=== PATIENT | male | born 1990 | race Caucasian/White ===

== ENCOUNTER 2016-11-20 20:08 | Emergency (ER) | payer BC, MEDICAID ==
[2016-11-20 21:59] VITALS: BP 148/88
[2016-11-20] MEDS ORDERED: Ondansetron 4 MG/2 ML SDV IVPUSH ONE (22:17)
[2016-11-20] MEDS ORDERED: HYDROmorphone 1 MG/ML Syringe IVPUSH ONE (22:18)
[2016-11-20] MEDS ORDERED: Sodium Chloride 0.9% 1,000 ML IV SCH (22:30)
[2016-11-20] MEDS ORDERED: Sodium Chloride 0.9% 10 ML Syringe FLUSH PRN (22:34)
[2016-11-20] MEDS ORDERED: Iopamidol 612 MG/ML 150 ML Bottle IV SCH (22:45)
--- NOTE | 2016-11-21 00:13 | EDM.PDOC ---
ED HPI GI/ABDOMINAL - General Chief Complaint: Abdominal Pain Stated Complaint: ABD PAIN Time Seen by Provider: 11/20/16 22:15 Source: Reports: Patient History Limitations: Reports: No limitations - History of Present Illness INITIAL COMMENTS - FREE TEXT/NARRATIVE: History of present illness: [26 show male presenting with a somewhat bizarre history of having 2 or 3 times per week some abdominal pain with fevers he has not been seen before for this. He's not had any nausea vomiting constipation diarrhea dysuria with it this is the first time he is presenting to be evaluated for this problem. The pain migrates somewhat but tonight it seems to be localizing in the left lower quadrant. He otherwise feels fine. He's had no travel outside the [place]] Review of systems: As per history of present illness and below otherwise all systems reviewed and negative. Past medical history: As per history of present illness and as reviewed below otherwise noncontributory. Surgical history: As per history of present illness and as reviewed below otherwise noncontributory. Social history: No reported history of drug or alcohol abuse. Family history: As per history of present illness and as reviewed below otherwise noncontributory. Physical exam: HEENT: Atraumatic, normocephalic, pupils reactive, negative for conjunctival pallor or scleral icterus, mucous membranes moist, throat clear, neck supple, nontender, trachea midline. Lungs: Clear to auscultation, breath sounds equal bilaterally, chest nontender. Heart: S1S2, regular, negative for clicks, rubs, or JVD. Abdomen: Distended palpation of left lower quadrant but no definitive peritoneal signs are noted. Pelvis: Stable nontender. Genitourinary: Deferred. Rectal: Deferred. Extremities: Atraumatic, negative for cords or calf pain. Neurovascular unremarkable. Neuro: Awake, alert, oriented. Cranial nerves II through XII unremarkable. Cerebellum unremarkable. Motor and sensory unremarkable throughout. Exam nonfocal. Diagnostics: [CBC complete panel and UA were done as well as CRP abdominal pelvic CT was also undertaken and was normal.] Therapeutics: [He was given IV fluids and some IV Dilaudid for pain] Impression: [Nonspecific abdominal pain with fever] Plan: [Since this is been going on for one month now I am going to empirically treat with Cipro 500 mg twice a day for 7 days and see if that makes a difference. I am advising him to followup with a primary care doctor to continue to try to sort out this problem. He may end up having to see an infectious disease specialist if he continues to have this problem and no one can identify why this is happening.] Definitive disposition and diagnosis as appropriate pending reevaluation and review of above. - Related Data Allergies/ADRs: Allergies Allergy/AdvReac Type Severity Reaction Status Date / Time No Known Allergies Allergy Verified 11/20/16 21:59 Home Meds: Home Meds NK [No Known Home Meds] 06/25/14 [History] Past Medical History - Infectious Disease History Infectious Disease History: Reports: Chicken pox - Past Surgical History HEENT Surgical History: Reports: Oral surgery Social & Family History - Family History Family Medical History: Unobtainable - Tobacco Use Smoking Status *Q: Never Smoker Second Hand Smoke Exposure: Yes - Caffeine Use Caffeine Use: Reports: Soda - Alcohol Use Days Per Week of Alcohol Use: 2 Number of Drinks Per Day: 2 Total Drinks Per Week: 4 - Recreational Drug Use Recreational Drug Use: Yes ED ROS GENERAL - Review of Systems Review Of Systems: ROS reveals no pertinent complaints other than HPI. ED EXAM, GI/ABD - Physical Exam Exam: See Below Course - Vital Signs Last Recorded V/S: Last Vital Signs Temp 38.4 C H 11/20/16 21:56 Pulse 118 H 11/20/16 21:56 Resp 18 11/20/16 21:56 BP 148/88 H 11/20/16 21:56 Pulse Ox 100 11/20/16 21:56 - Orders/Labs/Meds Orders: Active Orders 24 hr Category Date Time Status Abdomen Pelvis w Cont [CT] Stat Exams 11/20/16 22:16 Taken Iopamidol [Isovue-300 (61%)] Med 11/20/16 22:45 Active 112 ml IV . DIRECTED Sodium Chloride 0.9% [Normal Saline] 1,000 ml Med 11/20/16 22:30 Active IV ASDIRECTED Sodium Chloride 0.9% [Normal Saline] 74 ml Med 11/20/16 22:45 Active IV ASDIRECTED Sodium Chloride 0.9% [Saline Flush] Med 11/20/16 22:34 Active 10 ml FLUSH ASDIRECTED PRN Medication Orders Sodium Chloride (Normal Saline) 1,000 mls @ 150 mls/hr IV ASDIRECTED NILES Last Admin: 11/20/16 22:36 Dose: 150 mls/hr Sodium Chloride (Normal Saline) 74 mls @ 3.4 mls/sec IV ASDIRECTED NILES Last Admin: 11/20/16 22:52 Dose: 3.4 mls/sec Iopamidol (Isovue-300 (61%)) 112 ml IV . DIRECTED NILES Last Admin: 11/20/16 22:52 Dose: 112 ml Sodium Chloride (Saline Flush) 10 ml FLUSH ASDIRECTED PRN PRN Reason: Keep Vein Open Last Admin: 11/20/16 22:52 Dose: 10 ml Labs: Laboratory Tests 11/20/16 11/20/16 11/20/16 Range/Units 22:16 22:16 22:16 WBC 9.3 (4.5-11.0) K/uL RBC 5.54 (4.30-5.90) M/uL Hgb 16.5 H (12.0-15.0) g/dL Hct 48.7 (40.0-54.0) % MCV 88 (80-98) fL MCH 30 (27-31) pg MCHC 34 (32-36) % Plt Count 192 (150-400) K/uL Neut % (Auto) 84 H (36-66) % Lymph % (Auto) 8 L (24-44) % [place] % (Auto) 8 H (2-6) % Eos % (Auto) 0 L (2-4) % Baso % (Auto) 0 (0-1) % Sodium 139 L (140-148) mmol/L Potassium 3.6 (3.6-5.2) mmol/L Chloride 103 (100-108) mmol/L Carbon Dioxide 24 (21-32) mmol/L Anion Gap 15.6 H (5.0-14.0) mmol/L BUN 16 (7-18) mg/dL Creatinine 1.2 (0.8-1.3) mg/dL Est Cr Clr Drug Dosing 98.56 mL/min Estimated GFR (MDRD) > 60 (>60) Glucose 105 (74-106) mg/dL Lactic Acid 1.0 (0.4-2.0) mmol/L Calcium 8.4 L (8.5-10.1) mg/dL Total Bilirubin 0.7 (0.2-1.0) mg/dL AST 18 (15-37) U/L ALT 21 (12-78) U/L Alkaline Phosphatase 57 (46-116) U/L C-Reactive Protein 0.96 H (0.0-0.3) mg/dL Total Protein 7.5 (6.4-8.2) g/dL Albumin 4.3 (3.4-5.0) g/dL Globulin 3.2 (2.3-3.5) g/dL Albumin/Globulin Ratio 1.3 (1.2-2.2) Lipase 141 (73-393) U/L Urine Color Urine Appearance Urine pH (4.5-8.0) Ur Specific [place] (1.008-1.030) Urine Protein (NEGATIVE) mg/dL Urine Glucose (UA) (NEGATIVE) mg/dL Urine Ketones (NEGATIVE) mg/dL Urine Occult Blood (NEGATIVE) Urine Nitrite (NEGAITVE) Urine Bilirubin (NEGATIVE) Urine Urobilinogen (NORMAL) mg/dL Ur Leukocyte Esterase (NEGATIVE) Urine RBC (0-5) Urine WBC (0-5) Ur Epithelial Cells Amorphous Sediment Urine Bacteria Urine Mucus 11/20/16 Range/Units 23:00 WBC (4.5-11.0) K/uL RBC (4.30-5.90) M/uL Hgb (12.0-15.0) g/dL Hct (40.0-54.0) % MCV (80-98) fL MCH (27-31) pg MCHC (32-36) % Plt Count (150-400) K/uL Neut % (Auto) (36-66) % Lymph % (Auto) (24-44) % [place] % (Auto) (2-6) % Eos % (Auto) (2-4) % Baso % (Auto) (0-1) % Sodium (140-148) mmol/L Potassium (3.6-5.2) mmol/L Chloride (100-108) mmol/L Carbon Dioxide (21-32) mmol/L Anion Gap (5.0-14.0) mmol/L BUN (7-18) mg/dL Creatinine (0.8-1.3) mg/dL Est Cr Clr Drug Dosing mL/min Estimated GFR (MDRD) (>60) Glucose (74-106) mg/dL Lactic Acid (0.4-2.0) mmol/L Calcium (8.5-10.1) mg/dL Total Bilirubin (0.2-1.0) mg/dL AST (15-37) U/L ALT (12-78) U/L Alkaline Phosphatase (46-116) U/L C-Reactive Protein (0.0-0.3) mg/dL Total Protein (6.4-8.2) g/dL Albumin (3.4-5.0) g/dL Globulin (2.3-3.5) g/dL Albumin/Globulin Ratio (1.2-2.2) Lipase (73-393) U/L Urine Color Yellow Urine Appearance Clear Urine pH 5.0 (4.5-8.0) Ur Specific [place] 1.020 (1.008-1.030) Urine Protein Negative (NEGATIVE) mg/dL Urine Glucose (UA) Normal (NEGATIVE) mg/dL Urine Ketones 50 H (NEGATIVE) mg/dL Urine Occult Blood Negative (NEGATIVE) Urine Nitrite Negative (NEGAITVE) Urine Bilirubin Small (NEGATIVE) Urine Urobilinogen 1 (NORMAL) mg/dL Ur Leukocyte Esterase Negative (NEGATIVE) Urine RBC 0-5 (0-5) Urine WBC 0-5 (0-5) Ur Epithelial Cells Few Amorphous Sediment Not seen Urine Bacteria Few Urine Mucus Moderate Meds: Medications Generic Name Dose Route Start Last Admin Trade Name [place] PRN Reason Stop Dose Admin Sodium Chloride 1,000 mls @ 150 mls/hr 11/20/16 22:30 11/20/16 22:36 Normal Saline IV 150 mls/hr ASDIRECTED NILES Administration Sodium Chloride 74 mls @ 3.4 mls/sec 11/20/16 22:45 11/20/16 22:52 Normal Saline IV 3.4 mls/sec ASDIRECTED NILES Administration Iopamidol 112 ml 11/20/16 22:45 11/20/16 22:52 Isovue-300 (61%) IV 112 ml . DIRECTED NILES Administration Sodium Chloride 10 ml 11/20/16 22:34 11/20/16 22:52 Saline Flush FLUSH 10 ml ASDIRECTED PRN Administration Keep Vein Open Discontinued Medications Generic Name Dose Route Start Last Admin Trade Name Freq PRN Reason Stop Dose Admin Hydromorphone HCl 1 mg 11/20/16 22:18 11/20/16 22:40 Dilaudid IVPUSH 11/20/16 22:19 1 mg ONETIME ONE Administration Ondansetron HCl 4 mg 11/20/16 22:17 11/20/16 22:39 Zofran IVPUSH 11/20/16 22:18 4 mg ONETIME ONE Administration Departure - Departure Time of Disposition: 00:12 Disposition: Home, Self-Care 01 Condition: good Clinical Impression: Abdominal pain Qualifiers: Abdominal location: lower abdomen, unspecified Qualified Code(s): R10.30 - Lower abdominal pain, unspecified Fever Qualifiers: Fever type: unspecified Qualified Code(s): R50.9 - Fever, unspecified Forms: ED Department Discharge Additional Instructions: Please take the antibiotics as prescribed for 7 days and see if that makes a difference as far as your abdominal pain and fevers and that I would advise that you followup with a doctor in a clinic to continue to try to sort out the problems which you are having. - My Orders Last 24 Hours: My Active Orders 11/20/16 22:16 Abdomen Pelvis w Cont [CT] Stat 11/20/16 22:30 Sodium Chloride 0.9% [Normal Saline] 1,000 ml IV ASDIRECTED 11/20/16 22:34 Sodium Chloride 0.9% [Saline Flush] 10 ml FLUSH ASDIRECTED PRN 11/20/16 22:45 Iopamidol [Isovue-300 (61%)] 112 ml IV . DIRECTED Sodium Chloride 0.9% [Normal Saline] 74 ml IV ASDIRECTED - Assessment/Plan Last 24 Hours: My Active Orders 11/20/16 22:16 Abdomen Pelvis w Cont [CT] Stat 11/20/16 22:30 Sodium Chloride 0.9% [Normal Saline] 1,000 ml IV ASDIRECTED 11/20/16 22:34 Sodium Chloride 0.9% [Saline Flush] 10 ml FLUSH ASDIRECTED PRN 11/20/16 22:45 Iopamidol [Isovue-300 (61%)] 112 ml IV . DIRECTED Sodium Chloride 0.9% [Normal Saline] 74 ml IV ASDIRECTED
== END 2016-11-21 00:20 | disposition home or self-care (01) ==
LOC: JP.ED 20:08
DX: R10.30 Lower abdominal pain, unspecified (principal); R50.9 Fever, unspecified
CPT/HCPCS: 36415; 74177; 80053; 81001; 83605; 83690; 85025; 86140; 96361; 96374; 96375; 99284; J1170; J2405; J7030; J7040; J7050